=== PATIENT | male | born 1975 ===

== ENCOUNTER → 2021-03-23 | Day surgery (SDC) | payer OTHER ==
[~2021-03-23] VITALS: Ht 175.3 cm; Wt 90.7 kg
[~2021-03-23] MED LIST: FLONASE ALLER15.8 ML; IBUPROFEN800 MG PO; SUBOXONE 8 MG-1 EACH SL
[2021-03-23 11:53] LABS: BASOPHIL 0.4 % (0-2); EOSINOPHIL 2.4 % (0-5); HCT 44.1 % (42.0-52.0); HGB 14.9 g/dl (13.2-18.0); LYMPHOCYTE 36.4 % (15-48); MCH 30.6 pg (25.0-31.0); MCHC 33.8 g/dL (32.0-36.0); MCV 90.6 fL (78.0-100.0); MONOCYTE 5.2 % (0-12); NEUTROPHIL 55.3 % (41-80); NRBC 0; PLT 167 K/uL (150-400); RBC 4.87 M/uL (4.70-6.00); RDW 12.7 % (11.5-14.0); WBC 6.8 K/uL (4.0-10.5)
[2021-03-23 12:09] LABS: PROTHROMBIN TIME 12.6 SECONDS (11.8-13.4)
[2021-03-23 12:10] LABS: PTT 30.5 SECONDS (24.4-34.7)
[2021-03-23 12:11] LABS: ALBUMIN 3.9 g/dL (3.4-5.0); BILIRUBIN - TOTAL 0.4 mg/dL (0.2-1.0); BUN/CREAT RATIO (CALC) 22.7 RATIO; CREATININE 0.75 mg/dL (0.67-1.17); GLOBULIN (CALCULATION) 4.2 g/dL; POTASSIUM 4.4 mmol/L (3.5-5.1); TOTAL PROTEIN 8.1 g/dL (6.4-8.2)
== END | disposition home or self-care (01) ==
LOC: FAS 10:49
PROVIDERS: Oral & Maxillofacial Surgery
DX: K02.9 Dental caries, unspecified (principal); K05.30 Chronic periodontitis, unspecified; K04.7 Periapical abscess without sinus; F11.20 Opioid dependence, uncomplicated
CPT/HCPCS: D7140; D7210; 36415; 71045; 80053; 85025; 85610; 85730; 93005; J1100; J1885; J2250; J2405; J2704; J2710; J7120